=== PATIENT | female | born 1990 | race Caucasian/White ===

== ENCOUNTER 2018-02-04 12:48 | Emergency (ER) | END 2018-02-04 15:58 | disposition home or self-care (01) ==

== ENCOUNTER 2018-04-14 13:32 | Emergency (ER) | END 2018-04-14 15:38 | disposition home or self-care (01) ==

== ENCOUNTER 2018-05-12 13:05 | Emergency (ER) | END 2018-05-12 14:42 | disposition home or self-care (01) ==

== ENCOUNTER 2018-07-28 20:15 | Emergency (ER) | END 2018-07-28 22:07 | disposition home or self-care (01) ==

== ENCOUNTER 2018-10-31 18:12 | Emergency (ER) | payer SELFPAY ==
[~2018-10-31] VITALS: Ht 165.1 cm; Wt 64.7 kg
[~2018-10-31 18:12] MED LIST: CEPH-443 PO; CIPR-193 PO; IBUP-1561 PO; LORA-441 PO; NAPR-985 PO; TRAM50TA2 PO
[2018-10-31 18:41] VITALS: BP 126/75; Ht 165.1 cm; Wt 64.7 kg
[2018-10-31] MEDS ORDERED: KETOROLAC 60 MG INJ IM ONE (20:45)
--- NOTE | 2018-10-31 20:50 | ERD ---
ER Documentation Chief Complaint Chief Complaint fatigue w/on/off epigastric pain x 3-4 days HPI 27-year-old female history of tricuspid disease presents with complaint of epigastric pain after eating, chest pain, shortness of breath, and pain discharge in her left breast. States this started 3 days ago. Does not conduct self breast exams, denies any masses or erythema to the breast region. Denies syncope, dizziness, lightheadedness denies taking any treatments. States she has allergy to acetaminophen. Denies medications. Denies social. History of 2 C-sections. ROS All systems reviewed and are negative except as per history of present illness. Medications Home Meds Active Scripts Famotidine* (Pepcid*) 20 Mg Tablet, 20 MG PO BID for GERD for 14 Days, #28 TAB 0 Refills Prov:LESVIA BARAHONA 10/31/18 Cephalexin* (Keflex*) 500 Mg Capsule, 500 MG PO QID for mastitis for 7 Days, #28 CAP 0 Refills Prov:LESVIA BARAHONA 10/31/18 Tramadol HCl (Tramadol HCl) 50 Mg Tablet, 50 MG PO Q4 PRN for PAIN, #20 TAB Prov:ARMOND HAYS PA-C 07/28/18 Cephalexin* (Keflex*) 500 Mg Capsule, 500 MG PO QID for 5 Days, CAP Prov:ARMOND HAYS PA-C 07/28/18 Naproxen* (Naprosyn*) 500 Mg Tablet, 500 MG PO BID PRN for PAIN AND/OR INFLAMMATION, #30 TAB Prov:MAURY VELASCO PA-C 05/12/18 Ibuprofen* (Motrin*) 400 Mg Tab, 400 MG PO Q8 PRN for PAIN AND OR ELEVATED TEMP, #20 TAB Prov:CHARLI ALFRED MD 04/14/18 Lorazepam* (Ativan*) 0.5 Mg Tablet, 0.5 MG PO Q8H PRN for ANXIETY, #10 TAB Prov:CHARLI ALFRED MD 04/14/18 Ciprofloxacin Hcl* (Ciprofloxacin Hcl*) 250 Mg Tablet, 250 MG PO BID for 5 Days, #10 TAB Prov:CHARLI ALFRED MD 04/14/18 Allergies Allergies: Coded Allergies: acetaminophen (Unverified Allergy, Unknown, 04/14/18) PMhx/Soc Medical and Surgical Hx: pt denies Medical Hx, pt denies Surgical Hx Hx Alcohol Use: Yes (occasional) Hx Substance Use: No Hx Tobacco Use: Yes Smoking Status: Current some day smoker FmHx Family History: No diabetes, No coronary disease, No other Physical Exam Vitals Vital Signs Date Temp Pulse Resp B/P (MAP) Pulse Ox O2 O2 Flow FiO2 Time Delivery Rate 11/01/18 97.8 68 20 100 Room Air 00:05 10/31/18 98.6 77 18 126/75 100 18:41 (92) Physical Exam General: Well developed, well nourished. No acute distress. Heart: RR w/o murmur, rubs, or gallops. Lungs: Clear to auscultation bilaterally w/o wheezes, crackles, rhonchi. Symmetric rise and fall. Equal breath sounds. Abdomen: Soft, nontender, with no rigidity or guarding noted. No masses, lesions, or ecchymoses. Normoactive bowel sounds. No McBurney's point tenderness. Patient ambulatory. No tenderness to palpation in splenic area or splenomegaly. Breast: Conducted with direct support specialist in room. No masses, lesions or edema or discharge noted bilaterally. Inferior aspect of left breast tender to palpation at 6 o'clock position. Psych: Normal mood and affect. Result Diagram: 10/31/18205010/31/182050 Results 24 hrs Laboratory Tests Test 10/31/18 20:51 10/31/18 21:05 White Blood Count 11.4 10^3/ul Red Blood Count 4.95 10^6/ul Hemoglobin 15.1 g/dl Hematocrit 43.1 % Mean Corpuscular Volume 87.1 fl Mean Corpuscular Hemoglobin 30.5 pg Mean Corpuscular Hemoglobin Concent 35.0 g/dl Red Cell Distribution Width 12.1 % Platelet Count 230 10^3/UL Mean Platelet Volume 11.2 fl Immature Granulocytes % 0.300 % Neutrophils % 83.1 % Lymphocytes % 11.8 % Monocytes % 4.3 % Eosinophils % 0.2 % Basophils % 0.3 % Nucleated Red Blood Cells % 0.0 /100WBC Immature Granulocytes # 0.030 10^3/ul Neutrophils # 9.5 10^3/ul Lymphocytes # 1.4 10^3/ul Monocytes # 0.5 10^3/ul Eosinophils # 0.0 10^3/ul Basophils # 0.0 10^3/ul Nucleated Red Blood Cells # 0.0 10^3/ul Sodium Level 142 mmol/L Potassium Level 4.1 mmol/L Chloride Level 105 mmol/L Carbon Dioxide Level 26 mmol/L Anion Gap 11 Blood Urea Nitrogen 9 mg/dl Creatinine 0.66 mg/dl Est Glomerular Filtrat Rate mL/min > 60 mL/min Glucose Level 98 mg/dl Calcium Level 9.8 mg/dl Total Bilirubin 0.2 mg/dl Direct Bilirubin 0.00 mg/dl Indirect Bilirubin 0.2 mg/dl Aspartate Amino Transf (AST/SGOT) 34 IU/L Alanine Aminotransferase (ALT/SGPT) 22 IU/L Alkaline Phosphatase 70 IU/L Troponin I < 0.120 ng/ml Total Protein 9.0 g/dl Albumin 5.1 g/dl Globulin 3.90 g/dl Albumin/Globulin Ratio 1.30 POC Beta HCG, Qualitative NEGATIVE Current Medications Medications Dose Sig/Kj Start Time Status Last (Trade) Ordered Route PRN Stop Time Admin Dose Reason Admin Ketorolac 60 mg ONCE ONCE 10/31/18 DC 10/31/18 Tromethamine IM 20:45 10/31/18 21:23 (Toradol) 20:51 Procedures/MDM DIAGNOSTIC IMAGING REPORT Patient: AMILCAR CALVILLO : 1990 Age: 27 Sex: F MR #: [id number] DOS: 10/31/182044 Ordering MD: LESVIA BARAHONA Location: [facility] Room/Bed: PROCEDURE: XR 1 view Chest. CLINICAL INDICATION: Chest pain. TECHNIQUE: Portable Single frontal view of the chest was obtained. COMPARISON: CHEST 05/12/2018 FINDINGS: The heart is normal in size. There is no focal consolidation. There is no pleural effusion. No pneumothorax is identified. The osseous structures are intact. IMPRESSION: No significant change. No evidence for acute cardiopulmonary disease. Further findings as detailed above. RPTAT: HVF .Chetan Bello MD, MD Date Time Electronically viewed and signed by .Chetan Bello MD, MD on 10/31/2018 21:39 .F/ CC: LESVIA BARAHONA [phone] EKG: Rate/Rhythm: Sinus bradycardia QRS, ST, T-waves: No changes consistent w/ acute ischemia Impression: No evidence of ischemia or arrhythmia DIAGNOSTIC IMAGING REPORT Patient: AMILCAR CALVILLO : 1990 Age: 27 Sex: F MR #: [id number] DOS: 10/31/182048 Ordering MD: LESVIA BARAHONA Location: [facility] Room/Bed: PROCEDURE: US left Breast. CLINICAL INDICATION: Left breast pain and discharge TECHNIQUE: Multiple sonographic images of the region of concern in the left breast were obtained utilizing a high-resolution linear array transducer with grayscale and color-flow and Doppler imaging 1 appropriate. The images were reviewed on a high-resolution PACS workstation. COMPARISON: No prior studies are available for comparison. FINDINGS: Evaluation of all 4 breast quadrants reveals bland stromal, glandular and ductal tissue. There is no mass or cyst. There are no visible dilated ducts. There are no regions of unusual posterior acoustic shadowing or abnormal blood flow on color flow imaging. IMPRESSION: 1. Unremarkable left breast ultrasound. RPTAT:AAJJ Physician Julio Date Time Electronically viewed and signed by Physician Julio on 10/31/2018 23:34 GW/ CC: LESVIA BARAHONA [id number] ER Course: CBC, CMP, Troponin, EKG, Breast US - All WNL MDM: 27-year-old female history of tricuspid disease presents with complaint of epigastric pain after eating, chest pain, shortness of breath, and pain discharge in her left breast. States this started 3 days ago. Does not conduct self breast exams, denies any masses or erythema to the breast region. I have low suspicion for myocardial infarction, aortic dissection, pulmonary embolism, AAA, pancreatitis based on lab findings, imaging, history, and exam. Positive epigastric pain possibly due to GERD given patient's history. Patient prescribed Pepcid and will see if it resolves symptoms. I have low suspicion f or left breast abscess or malignancy based on exam findings and imaging. Left breast pain may be due to mastitis for which Keflex was prescribed. Patient discharged with strict ER precautions. Patient advised to follow up with PMD. All questions answered at discharge. Departure Diagnosis: Primary Impression: Breast pain Additional Impression: Epigastric abdominal pain Condition: Stable LESVIA BARAHONA Oct 31, 2018 20:50
[2018-10-31] MEDS ORDERED: CEPH-443 PO (23:23)
[2018-10-31] MEDS ORDERED: FAMO-96 PO (23:26)
[2018-11-01 00:05] VITALS: PULSE 68; RESP 20
[2018-12-07] MEDS ORDERED: BEN25 PO (13:52)
== END 2018-11-01 00:05 | disposition home or self-care (01) ==
LOC: FTE 18:12
DX: N64.4 Mastodynia (principal); F17.210 Nicotine dependence, cigarettes, uncomplicated
CPT/HCPCS: 71045; 76641; 80053; 81025; 83690; 84484; 85025; 96372; 99285; J1885

== ENCOUNTER 2018-12-24 21:43 | Emergency (ER) | payer SELFPAY ==
[~2018-12-24] VITALS: Ht 160 cm; Wt 65.6 kg
[~2018-12-24 21:43] MED LIST changes: +BEN25 PO; +FAMO-96 PO
[2018-12-24 21:49] VITALS: BP 120/66; PULSE 66; RESP 19; Ht 160 cm; Wt 65.6 kg
== END 2018-12-25 00:45 | disposition left against medical advice (07) ==
LOC: FTE 21:43
DX: Z53.21 Procedure and treatment not carried out due to patient leaving prior to being seen by health care provider (principal)

== ENCOUNTER 2019-05-23 18:36 | Emergency (ER) | payer SELFPAY ==
[~2019-05-23] VITALS: Ht 165.1 cm; Wt 64.2 kg
[2019-05-23 18:42] VITALS: BP 114/53; PULSE 75; RESP 18; Ht 165.1 cm; Wt 64.2 kg
[2019-05-23] MEDS ORDERED: IBUPROFEN 600 MG TAB PO ONE (20:00)
[2019-05-23] MEDS ORDERED: IBUP-1542 PO (21:18)
[2019-05-23] MEDS ORDERED: TRAM50TA2 PO (21:18)
--- NOTE | 2019-05-23 21:21 | ERD ---
ER Documentation Chief Complaint Chief Complaint LOWER BACK +PELVIC PAIN X3DAYS (DENIES URINE PAIN) HPI 28-year-old female presents with right lower back pain rating to the lower abdomen for last 3 days. She denies dysuria, flank pain. Denies fevers, vomiting. She has additional complaint of frontal headache, nasal congestion. She has had intermittent nosebleeds but no current bleeding. ROS All systems reviewed and are negative except as per history of present illness. Medications Home Meds Active Scripts Tramadol HCl (Tramadol HCl) 50 Mg Tablet, 50 MG PO Q4 PRN for PAIN, #12 TAB Prov:OUMAR RAMIREZ MD 05/23/19 Ibuprofen* (Motrin*) 600 Mg Tab, 600 MG PO Q6, #20 TAB Prov:OUMAR RAMIREZ MD 05/23/19 Diphenhydramine Hcl* (Benadryl*) 25 Mg Cap, 25 MG PO Q6, #15 CAP Prov:OUMAR RAMIREZ MD 12/07/18 Famotidine* (Pepcid*) 20 Mg Tablet, 20 MG PO BID for GERD for 14 Days, #28 TAB 0 Refills Prov:LESVIA BARAHONA 10/31/18 Cephalexin* (Keflex*) 500 Mg Capsule, 500 MG PO QID for mastitis for 7 Days, #28 CAP 0 Refills Prov:LESVIA BARAHONA 10/31/18 Tramadol HCl (Tramadol HCl) 50 Mg Tablet, 50 MG PO Q4 PRN for PAIN, #20 TAB Prov:ARMOND HAYS PA-C 07/28/18 Cephalexin* (Keflex*) 500 Mg Capsule, 500 MG PO QID for 5 Days, CAP Prov:ARMOND HAYS PA-C 07/28/18 Naproxen* (Naprosyn*) 500 Mg Tablet, 500 MG PO BID PRN for PAIN AND/OR INFLAMMATION, #30 TAB Prov:MAURY VELASCO PA-C 05/12/18 Ibuprofen* (Motrin*) 400 Mg Tab, 400 MG PO Q8 PRN for PAIN AND OR ELEVATED TEMP, #20 TAB Prov:CHARLI ALFRED MD 04/14/18 Lorazepam* (Ativan*) 0.5 Mg Tablet, 0.5 MG PO Q8H PRN for ANXIETY, #10 TAB Prov:CRESPO-WYLIE,CHARLI MD 04/14/18 Ciprofloxacin Hcl* (Ciprofloxacin Hcl*) 250 Mg Tablet, 250 MG PO BID for 5 Days, #10 TAB Prov:CHARLI ALFRED MD 04/14/18 Allergies Allergies: Coded Allergies: acetaminophen (Unverified Allergy, Unknown, 04/14/18) PMhx/Soc Medical and Surgical Hx: pt denies Medical Hx, pt denies Surgical Hx Hx Alcohol Use: Yes (occasional) Hx Substance Use: No Hx Tobacco Use: Yes Smoking Status: Never smoker FmHx Family History: No diabetes, No coronary disease, No other Physical Exam Vitals Vital Signs Date Temp Pulse Resp B/P (MAP) Pulse Ox O2 O2 Flow FiO2 Time Delivery Rate 05/23/19 98.3 75 18 114/53 99 18:42 (73) Physical Exam Const: No acute distress Head: Atraumatic Eyes: Normal Conjunctiva ENT: Normal External Ears, Nose and Mouth. TMs normal. Nasal congestion. Oropharynx normal. Neck: Full range of motion. No meningismus. Resp: Clear to auscultation bilaterally Cardio: Regular rate and rhythm, no murmurs Abd: Soft, non tender, non distended. Normal bowel sounds minimal tenderness bilateral lower abdominal area. No focal tenderness McBurney's point no Nava sign no rebound. Pain is minimal. Skin: No petechiae or rashes Back: No midline or flank tenderness and mild tenderness right T2-2-ickr-old. No midline tenderness or deformities. Ext: No cyanosis, or edema Neur: Awake and alert Psych: Normal Mood and Affect Results 24 hrs Laboratory Tests Test 05/23/19 19:49 05/23/19 19:52 Urine Color YELLOW Urine Clarity SLIGHTLY CLOUDY Urine pH 6.0 Urine Specific [place] 1.026 Urine Ketones NEGATIVE mg/dL Urine Nitrite NEGATIVE mg/dL Urine Bilirubin NEGATIVE mg/dL Urine Urobilinogen 2+ mg/dL Urine Leukocyte Esterase NEGATIVE Cassie/ul Urine Microscopic RBC 5 /HPF Urine Microscopic WBC 3 /HPF Urine Squamous Epithelial Cells MODERATE /HPF Urine Mucus MODERATE /HPF Urine Hemoglobin NEGATIVE mg/dL Urine Glucose NEGATIVE mg/dL Urine Total Protein NEGATIVE mg/dl POC Beta HCG, Qualitative NEGATIVE Current Medications Medications Dose Sig/Kj Start Time Status Last (Trade) Ordered Route PRN Stop Time Admin Dose Reason Admin Ibuprofen 600 mg ONCE ONCE 05/23/19 DC 05/23/19 (Motrin) PO 20:00 19:49 05/23/19 20:01 Procedures/MDM Shows no acute abnormalities. hCG negative. Pelvic ultrasound read as normal by the radiologist. Patient given ibuprofen for pain. Urine sent for gonorrhea chlamydia. Patient is well-appearing and ambulatory without significant discomfort. Patient presents with low back pain which may be musculoskeletal. It does radiate to the lower abdomen but patient has no signs to suggest appendicitis, tubo-ovarian abscess, obstruction, surgical abdomen. Will treat with a short course of ibuprofen, tramadol, further observation at home and return precautions. The patient was stable with no new complaints during the ER course. Clinically, there is no current evidence to suggest meningitis, sepsis, acute abdomen, pneumonia, stroke, acute coronary syndrome, pulmonary embolism, aortic dissection or any other emergent condition appearing to require further evaluation or hospitalization. Patient counseled regarding my diagnostic impression and care plan. Prior to discharge all questions answered. Pt agrees with treatment plan and understands strict return precautions. Pt is instructed to follow up with primary care provider within 24-48 hours. Precautionary instructions provided including instructions to return to the ER if not improving or for any worsening or changing symptoms or concerns. Disclaimer: Inadvertent spelling and grammatical errors are likely due to EHR/dictation software use and do not reflect on the overall quality of patient care. Also, please note that the electronic time recorded on this note does not necessarily reflect the actual time of the patient encounter. Departure Diagnosis: Primary Impression: Pelvic pain Additional Impression: Back pain Back pain location: low back pain Chronicity: acute Back pain laterality: right Sciatica presence: without sciatica Qualified Codes: M54.5 - Low back pain Condition: Stable Patient Instructions: Back Pain (Acute Or Chronic), Pelvic Pain, Unknown Cause Additional Instructions: Examines normal hoy. Cheque otro vez con [place] doctor primario en el proximo [place] or regresa para mas o nueva simptomas. OUMAR RAMIREZ MD May 23, 2019 21:21
== END 2019-05-23 21:35 | disposition home or self-care (01) ==
LOC: FTE 18:36
DX: R10.2 Pelvic and perineal pain (principal); M54.5 Low back pain
CPT/HCPCS: 76856; 81001; 81003; 81025; 87591

== ENCOUNTER 2019-06-28 13:03 | Emergency (ER) | payer MEDICAID, OTHER ==
[~2019-06-28] VITALS: Ht 165.1 cm; Wt 63.6 kg
[~2019-06-28 13:03] MED LIST changes: +IBUP-1542 PO; +ONDA4TAB14 PO
[2019-06-28 13:11] VITALS: BP 116/57; PULSE 80; RESP 18; Ht 165.1 cm; Wt 63.6 kg
[2019-06-28] MEDS ORDERED: ONDANSETRON (ODT) 4 MG TAB ODT STA (13:49)
[2019-06-28] MEDS ORDERED: KETOROLAC 30 MG INJ IM STA (13:49)
[2019-06-28] MEDS ORDERED: LORAZEPAM 0.5 MG TAB PO ONE (14:00)
== END 2019-06-28 15:26 | disposition home or self-care (01) ==
LOC: FTE 13:03
DX: F41.9 Anxiety disorder, unspecified (principal); R11.10 Vomiting, unspecified; F17.210 Nicotine dependence, cigarettes, uncomplicated
CPT/HCPCS: 81003; 81025; 96372; J1885; Z7502; Z7610